=== PATIENT | female | born 1935 | race Two or more races ===

== ENCOUNTER 2020-10-14 17:53 | Emergency (ER) | payer MEDICARE ==
[~2020-10-14] VITALS: Ht 154.9 cm; Wt 50.0 kg
--- NOTE | 2020-10-14 17:55 | NUR ---
PT BIBA FROM [facility] FOR [facility]. PER EMS PT FELL INTO SISTER, THEY BUMPED HEADS AND ROAD THE ESCALATOR UP LAYING DOWN AFTER THE FALL. PT C/O BEING DIZZY AND HEAD PAIN. PT AXOX4. DAUGHTER AT . PT CHANGED INTO GOWN, MONITORS IN PLACE. CALL LIGHT WITHIN REACH.
--- NOTE | 2020-10-14 18:07 | NUR ---
ERP AT BS
[2020-10-14] MEDS ORDERED: ACETAMINOPHEN 500 MG TABLET ONE (18:12)
--- NOTE | 2020-10-14 18:14 | NUR ---
PT MEDICATED PER EMAR. NADN/VSS. DAUGHTER AT BS. CALL LIGHT WITHIN REACH. COMFORT MEASURES PROVIDED.
--- NOTE | 2020-10-14 18:22 | NUR ---
PT TO CT
[2020-10-14] MEDS ORDERED: ACETAMINOPHEN 500 MG TABLET PO ONE (18:30)
--- NOTE | 2020-10-14 18:31 | NUR ---
PT BACK FROM CT, CONNECTED TO MONITORS. CALL LIGHT WITHIN REACH
--- NOTE | 2020-10-14 18:51 | NUR ---
REPORT TO DIANN MEYER
[2020-10-14 19:27] VITALS: BP 152/61
== END 2020-10-14 19:29 | disposition home or self-care (01) ==
LOC: ED 18:23
DX: S00.01XA Abrasion of scalp, initial encounter (principal); E04.2 Nontoxic multinodular goiter; M54.2 Cervicalgia; I10 Essential (primary) hypertension; W01.0XXA Fall on same level from slipping, tripping and stumbling without subsequent striking against object, initial encounter; Y93.89 Activity, other specified; Y92.59 Other trade areas as the place of occurrence of the external cause; Y99.8 Other external cause status
CPT/HCPCS: 70450; 72125; 93005; 99285